=== PATIENT | female | born 1970 | race Caucasian/White ===

== ENCOUNTER → 2018-04-29 | Outpatient (CLI) | payer OTHER | LOC: FIMAGING 12:31 → MERGE 12:31 | PROVIDERS: ATTEND Obstetrics & Gynecology | DX: Z12.31 Encounter for screening mammogram for malignant neoplasm of breast (principal); Z80.3 Family history of malignant neoplasm of breast; R92.8 Other abnormal and inconclusive findings on diagnostic imaging of breast ==

== ENCOUNTER → 2018-05-15 | Outpatient (CLI) | payer OTHER | LOC: FIMAGING 09:04 | PROVIDERS: ATTEND Obstetrics & Gynecology | DX: N63.11 Unspecified lump in the right breast, upper outer quadrant (principal) ==

== ENCOUNTER → 2018-06-05 | Outpatient (CLI) | payer OTHER ==
[~2018-06-05] MED LIST: GADOBUTROL 10 ML VIAL IVP ONE
== END | disposition home or self-care (01) ==
LOC: FIMAGING 07:45
PROVIDERS: ATTEND Obstetrics & Gynecology
DX: R92.8 Other abnormal and inconclusive findings on diagnostic imaging of breast (principal); N63.10 Unspecified lump in the right breast, unspecified quadrant
CPT/HCPCS: 82565-PO; A9585; C8908

== ENCOUNTER 2018-07-04 08:17 | Outpatient (CLI) | payer OTHER ==
[2018-07-04] MEDS ORDERED: NA BICARBONATE 50 MEQ/50 ML VIAL ONE (08:29)
[2018-07-04] MEDS ORDERED: GADOBUTROL 10 ML VIAL IVP ONE (08:29)
[2018-07-04] MEDS ORDERED: BUPIVACAINE 0.5% 30 ML SDV ONE (08:30)
[2018-07-04] MEDS ORDERED: LIDOCAINE 1% 5 ML SDV ONE (08:30)
[2018-07-04] MEDS ORDERED: FLUMAZENIL 0.5 MG/5 ML MDV IVP PRN (09:07)
[2018-07-04] MEDS ORDERED: fentaNYL 100 MCG/2 ML INJ IVP PRN (09:07)
[2018-07-04] MEDS ORDERED: NALOXONE HCL 0.4 MG/ML INJ IVP PRN (09:07)
[2018-07-04] MEDS ORDERED: MIDAZOLAM 2 MG/2 ML VIAL IVP PRN (09:07)
[2018-07-04] MEDS ORDERED: NS 1,000 ML IV SCH (09:15)
[2018-07-04] MEDS ORDERED: MIDAZOLAM 2 MG/2 ML VIAL ONE (09:16)
[2018-07-04] MEDS ORDERED: THROMBIN (BOVINE) 5,000 UNIT VIAL TP ONE ×2 (09:17→09:18)
[2018-07-04] MEDS ORDERED: FLUMAZENIL 0.5 MG/5 ML MDV IVP ONE (09:17)
[2018-07-04] MEDS ORDERED: fentaNYL 100 MCG/2 ML INJ ONE (09:17)
[2018-07-04] MEDS ORDERED: NALOXONE HCL 0.4 MG/ML INJ ONE (09:17)
--- NOTE | 2018-07-04 09:48 | PDGENHP ---
History & Physical Chief Complaint: abnl right breast MRI Relevant Physical Exam: RRR, lungs clear
--- NOTE | 2018-07-04 09:48 | PDPROPOC ---
Sedation Plan of Care Sedation Plan of Care: vital signs stable, mental status noted, patient educated of risks, benefits, alternatives, patient can tolerate sedation ASA Classification: ASA 1 Planned drugs: fentanyl, midazolam Mallampati Score: Class 1 Mallampati Reference Image: Patient passed 3-3-2 rule?: Yes
[2018-07-04] MEDS ORDERED: ONDANSETRON 4 MG/2 ML VIAL IVP PRN (10:41)
[2018-07-04] MEDS ORDERED: ACETAMINOPHEN 325 MG TAB PO PRN (10:41)
[2018-07-04 12:10] VITALS: BP 120/72
== END 2018-07-04 11:45 | disposition home or self-care (01) ==
LOC: FIMAGING 08:17
PROVIDERS: ATTEND Obstetrics & Gynecology
PROC: 0HBT3ZX Excision of Right Breast, Percutaneous Approach, Diagnostic (ICD-10-PCS; principal; 2018-07-04)
DX: N63.10 Unspecified lump in the right breast, unspecified quadrant (principal)
CPT/HCPCS: A9585; J2250; J2310; J3010